=== PATIENT | female | born 1955 | race Caucasian/White ===

== ENCOUNTER 2018-12-30 14:39 | Inpatient (IN) | payer OTHER ==
[~2018-12-30] VITALS: Ht 157.5 cm; Wt 61.8 kg
[2018-12-30 17:57] VITALS: Ht 157.5 cm; Wt 61.8 kg
[2018-12-30 18:00] VITALS: BP 159/64; PULSE 65; RESP 18
[2018-12-30] MEDS ORDERED: ZOLPIDEM 5 MG TAB PO PRN (19:00)
[2018-12-30] MEDS ORDERED: ONDANSETRON 4 MG INJ IV PRN (19:00)
[2018-12-30] MEDS ORDERED: ACETAMINOPHEN 325 MG TAB PO PRN (19:00)
[2018-12-30] MEDS ORDERED: morphine 2 MG INJ IV PRN (19:00)
[2018-12-30] MEDS ORDERED: DOCUSATE SODIUM 100 MG CAP PO PRN (19:00)
[2018-12-30] MEDS ORDERED: NACL 0.9% 3 ML SYG IV SCH (19:00)
[2018-12-30 19:35] VITALS: BP 151/73; PULSE 80; RESP 20
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
[2018-12-31 01:48] VITALS: BP 144/77; PULSE 84; RESP 20
[2018-12-31] MEDS: CEFTRIAXONE 1 GM/50 ML (PMX) 50 ML IVPB SCH (01:54)
[2018-12-31 07:10] VITALS: BP 137/65; PULSE 82; RESP 16
[2018-12-31] MEDS: ENOXAPARIN 40 MG/0.4 ML SYG SC SCH (08:27)
--- NOTE | 2018-12-31 12:49 | PN ---
Date/Time of Note Date/Time of Note DATE: 12/31/18 TIME: 12:48 Assessment/Plan VTE Prophylaxis Risk score (from Nsg)>0 risk: 4 SCD applied (from Nsg): Yes Pharmacological prophylaxis: LMWH Lines/Catheters IV Catheter Type (from Nrs): Saline Lock Assessment/Plan Hospital Course SUBJECTIVE: Lying in bed comfortably. No acute distress. OBJECTIVE: Vital signs-see below PHYSICAL EXAM: Constitutional: 63-year-old female, not in acute distress. Psych: nl mood/affect, no complaints Head: atraumatic, normocephalic Eyes: nl conjunctiva, nl sclera ENMT: mucosa pink and moist, nl external ears & nose Neck: non-tender, supple Respiratory: clear to auscultation, normal air movement Cardiovascular: nl pulses, regular rate and rhythm Gastrointestinal: non-tender, soft, bowel sounds active in all 4 quadrants. Musculoskeletal/extremities: Generalized weakness to all 4 extremities. no fo flori deficit. Normal pulses,no cyanosis, no edema. 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: Alert oriented 3,nl speech, nl strength Skin: nl turgor ASSESSMENT/PLAN: 63-year-old homeless female with a history of chronic back p ain/progressive weakness, here with worsening weakness with inability to walk. 1. Progressive debility -Case management to review chart and refer patient for appropriate placement. -Formal PT eval 2. 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 She should receive a formal physical therapy evaluation to determine her functional ability and appropriate disposition, most likely needing ECF. Patient was seen in collaboration with . Result Diagram: 12/31/181 12/31/18 0421 Results 24hrs Laboratory Tests Test 12/31/18 00:35 12/31/18 04:21 White Blood Count 6.6 6.5 Red Blood Count 4.25 4.32 Hemoglobin 12.6 12.7 Hematocrit 38.6 39.6 Mean Corpuscular Volume 90.8 91.7 Mean Corpuscular Hemoglobin 29.6 29.4 Mean Corpuscular Hemoglobin Concent 32.6 32.1 Red Cell Distribution Width 13.0 13.1 Platelet Count 304 299 Mean Platelet Volume 8.8 8.9 Immature Granulocytes % 0.300 0.500 H Neutrophils % 56.3 57.1 Lymphocytes % 30.3 28.1 Monocytes % 11.4 H 12.2 H Eosinophils % 1.4 1.5 Basophils % 0.3 0.6 Nucleated Red Blood Cells % 0.0 0.0 Immature Granulocytes # 0.020 0.030 Neutrophils # 3.7 3.7 Lymphocytes # 2.0 1.8 Monocytes # 0.8 0.8 Eosinophils # 0.1 0.1 Basophils # 0.0 0.0 Nucleated Red Blood Cells # 0.0 0.0 Sodium Level 142 141 Potassium Level 4.0 3.9 Chloride Level 106 108 Carbon Dioxide Level 27 28 Anion Gap 9 5 Blood Urea Nitrogen 17 20 Creatinine 0.76 0.71 Est Glomerular Filtrat Rate mL/min > 60 > 60 Glucose Level 121 104 Calcium Level 9.9 10.1 Total Bilirubin 0.1 L 0.1 L Direct Bilirubin 0.00 0.00 Indirect Bilirubin 0.1 0.1 Aspartate Amino Transf (AST/SGOT) 18 25 Alanine Aminotransferase (ALT/SGPT) 18 15 Alkaline Phosphatase 70 72 Total Protein 6.4 6.0 L Albumin 3.8 3.6 Globulin 2.60 2.40 Albumin/Globulin Ratio 1.46 1.50 Hemoglobin A1c 5.6 Phosphorus Level 4.6 Magnesium Level 2.2 Exam/Review of Systems Exam Vitals Vital Signs Date Temp Pulse Resp B/P (MAP) Pulse Ox O2 O2 Flow FiO2 Time Delivery Rate 12/31/18 98.3 82 16 137/65 92 Room Air 07:10 (89) Intake and Output 12/30/18 12/30/18 12/31/18 1414:59 22:59 06:59 IntakeIntake Total 700 ml BalanceBalance 700 ml Results Results 24hrs Laboratory Tests Test 12/31/18 00:35 12/31/18 04:21 White Blood Count 6.6 6.5 Red Blood Count 4.25 4.32 Hemoglobin 12.6 12.7 Hematocrit 38.6 39.6 Mean Corpuscular Volume 90.8 91.7 Mean Corpuscular Hemoglobin 29.6 29.4 Mean Corpuscular Hemoglobin Concent 32.6 32.1 Red Cell Distribution Width 13.0 13.1 Platelet Count 304 299 Mean Platelet Volume 8.8 8.9 Immature Granulocytes % 0.300 0.500 H Neutrophils % 56.3 57.1 Lymphocytes % 30.3 28.1 Monocytes % 11.4 H 12.2 H Eosinophils % 1.4 1.5 Basophils % 0.3 0.6 Nucleated Red Blood Cells % 0.0 0.0 Immature Granulocytes # 0.020 0.030 Neutrophils # 3.7 3.7 Lymphocytes # 2.0 1.8 Monocytes # 0.8 0.8 Eosinophils # 0.1 0.1 Basophils # 0.0 0.0 Nucleated Red Blood Cells # 0.0 0.0 Sodium Level 142 141 Potassium Level 4.0 3.9 Chloride Level 106 108 Carbon Dioxide Level 27 28 Anion Gap 9 5 Blood Urea Nitrogen 17 20 Creatinine 0.76 0.71 Est Glomerular Filtrat Rate mL/min > 60 > 60 Glucose Level 121 104 Calcium Level 9.9 10.1 Total Bilirubin 0.1 L 0.1 L Direct Bilirubin 0.00 0.00 Indirect Bilirubin 0.1 0.1 Aspartate Amino Transf (AST/SGOT) 18 25 Alanine Aminotransferase (ALT/SGPT) 18 15 Alkaline Phosphatase 70 72 Total Protein 6.4 6.0 L Albumin 3.8 3.6 Globulin 2.60 2.40 Albumin/Globulin Ratio 1.46 1.50 Hemoglobin A1c 5.6 Phosphorus Level 4.6 Magnesium Level 2.2 Medications Medication Current Medications IV Flush (NS 3 ml) 3 ml PER PROTOCOL IV ; Start 12/30/18 at 19:00 Ondansetron HCl (Zofran Inj) 4 mg Q6H PRN IV NAUSEA/VOMITING; Start 12/30/18 at 19:00 Acetaminophen (Tylenol Tab) 650 mg Q6H PRN PO .PAIN 1-3 OR TEMP; Start 12/30/18 at 19:00 Acetaminophen/ Hydrocodone Bitart ([place] (5/325)) 1 tab Q6H PRN PO .MOD PAIN 4- 6; Start 12/30/18 at 19:00 Morphine Sulfate (morphine) 2 mg Q4H PRN IV .SEVERE PAIN 7-10; Start 12/30/18 at 19:00 Docusate Sodium (Colace) 100 mg Q12H PRN PO .CONSTIPATION; Start 12/30/18 at 19:00 Zolpidem Tartrate (Ambien) 5 mg QHS PRN PO .INSOMNIA; Start 12/30/18 at 19:00 Enoxaparin Sodium (Lovenox) 40 mg DAILY SC Last administered on 12/31/18at 08:27; Admin Dose 40 MG; Start 12/31/18 at 09:00 Ceftriaxone Sodium 50 ml @ 100 mls/hr Q24H IVPB Last administered on 12/31/18at 01:54; Admin Dose 100 MLS/HR; Start 12/31/18 at 01:00; Stop 01/02/19 at 01:29 PRABHJOT NAVA NP Dec 31, 2018 12:49
[2018-12-31 20:00] VITALS: BP 154/71; PULSE 77; RESP 19
[2019-01-01] MEDS: CEFTRIAXONE 1 GM/50 ML (PMX) 50 ML IVPB SCH (01:38)
[2019-01-01 02:00] VITALS: BP 125/60; PULSE 68; RESP 18
[2019-01-01] MEDS: HYDROCODONE/APAP (5/325) TAB PO PRN (06:37)
[2019-01-01 08:00] VITALS: BP 129/65; PULSE 69; RESP 18
[2019-01-01] MEDS: ENOXAPARIN 40 MG/0.4 ML SYG SC SCH (08:42)
--- NOTE | 2019-01-01 11:43 | PN ---
Date/Time of Note Date/Time of Note DATE: 01/01/19 TIME: 11:41 Assessment/Plan VTE Prophylaxis Risk score (from Ns)>0 risk: 4 SCD applied (from Ns): No SCD contraindicated: patient refusal Pharmacological prophylaxis: heparin Lines/Catheters IV [facility] Saline Lock Assessment/Plan Problems: (1) Debility, unspecified Status: Chronic Comment: This is been going on for some time and one wonders if there might be a syrinx in the cervical spine. Since she has had recent MRI scans done I will try and get copies of those reports before unable to the [place] after repeat the films. In the meantime coordinating care especially with her insurance and her primary care physician will be a somewhat tedious task but we will do our best (2) Chronic pain syndrome Status: Chronic Comment: Adequate control at this time. (3) Right foot drop Status: Chronic Comment: Need background data (4) Homeless single person Status: Chronic Comment: central services tech and case management to assist Result Diagram: 12/31/18 04212/31/18420 Subjective 24 Hr Interval Summary Free Text/Dictation Rather animated young lady who reports that "I want to walk". She has a 10-year history of orthopedic issues and we have a paucity of information. Constitutional: no complaints ENT: no complaints Respiratory: no complaints Cardiovascular: no complaints Gastrointestinal: no complaints Neurologic: other (Left-sided weakness lower extremity worsen upper extremity; right sided foot drop) Exam/Review of Systems Exam Vitals Vital Signs Date Temp Pulse Resp B/P (MAP) Pulse Ox O2 O2 Flow FiO2 Time Delivery Rate 01/01/19 98.2 69 18 129/65 95 Room Air 08:00 (86) Intake and Output 12/31/18 12/31/18 01/01/19 1515:00 23:00 07:00 IntakeIntake Total 720 ml BalanceBalance 720 ml Constitutional: alert, oriented Respiratory: clear to auscultation, normal air movement Cardiovascular: regular rate and rhythm, nl pulses Gastrointestinal: soft, nl liver, spleen, non-tender Medications Medication Current Medications IV Flush (NS 3 ml) 3 ml PER PROTOCOL IV ; Start 12/30/18 at 19:00 Ondansetron HCl (Zofran Inj) 4 mg Q6H PRN IV NAUSEA/VOMITING; Start 12/30/18 at 19:00 Acetaminophen (Tylenol Tab) 650 mg Q6H PRN PO .PAIN 1-3 OR TEMP; Start 12/30/18 at 19:00 Acetaminophen/ Hydrocodone Bitart ([place] (5/325)) 1 tab Q6H PRN PO .MOD PAIN 4- 6 Last administered on 01/01/19at 06:37; Admin Dose 1 TAB; Start 12/30/18 at 19:00 Morphine Sulfate (morphine) 2 mg Q4H PRN IV .SEVERE PAIN 7-10; Start 12/30/18 at 19:00 Docusate Sodium (Colace) 100 mg Q12H PRN PO .CONSTIPATION; Start 12/30/18 at 19:00 Zolpidem Tartrate (Ambien) 5 mg QHS PRN PO .INSOMNIA; Start 12/30/18 at 19:00 Enoxaparin Sodium (Lovenox) 40 mg DAILY SC Last administered on 01/01/19at 08:42; Admin Dose 40 MG; Start 12/31/18 at 09:00 Ceftriaxone Sodium 50 ml @ 100 mls/hr Q24H IVPB Last administered on 01/01/19at 01:38; Admin Dose 100 MLS/HR; Start 12/31/18 at 01:00; Stop 01/02/19 at 01:29 Miscellaneous Information Patients own medicat... BID@ XX ; Start 01/01/19 at 10:00 TRAVON SMART MD Jan 01, 2019 11:43
[2019-01-01 14:00] VITALS: BP 129/53; PULSE 81; RESP 18
[2019-01-01 19:50] VITALS: BP 125/69; PULSE 78; RESP 18
[2019-01-02] MEDS: CEFTRIAXONE 1 GM/50 ML (PMX) 50 ML IVPB SCH (00:40)
[2019-01-02 01:44] VITALS: BP 132/64; PULSE 74; RESP 18
[2019-01-02] MEDS: HYDROCODONE/APAP (5/325) TAB PO PRN (03:23)
[2019-01-02 07:41] VITALS: BP 120/64; PULSE 74; RESP 18
[2019-01-02] MEDS: ENOXAPARIN 40 MG/0.4 ML SYG SC SCH (08:32)
--- NOTE | 2019-01-02 12:08 | PN ---
Date/Time of Note Date/Time of Note DATE: 01/02/19 TIME: 12:01 Assessment/Plan VTE Prophylaxis Risk score (from Ns)>0 risk: 4 [place] [facility] [place] contraindicated: patient refusal Pharmacological prophylaxis: heparin Lines/Catheters IV [facility] Peripheral IV Urinary Cath still in place: No Assessment/Plan Problems: (1) Cervical spinal stenosis Status: Chronic Comment: We have not had luck getting the information from the other hospital and the patient informs me we may have to search under different names. Given this been some time possibly since the last set of scans will just go ahead and repeat these for MRI scan of cervical and lumbar spine. Based on that that will then tell us whether or not we need neurosurgical involvement and possibly neurology involvement. If she does have cervical spine stenosis the brain is causing lower extremity symptoms but this will need to be addressed. (2) Right foot drop Status: Chronic Comment: As above (3) Debility, unspecified Status: Chronic Comment: As above (4) Chronic pain syndrome Status: Chronic Comment: Pain is under control at this time (5) Homeless single person Status: Chronic Comment: Case management and social work to assist. Result Diagram: 12/31/1842012/31/18420 Subjective 24 Hr Interval Summary Free Text/Dictation Patient reports that she had had medical care using a couple of different names i.e. aliases while living in [place]. The hospital records at [facility] are under the name we have here Constitutional: no complaints Respiratory: no complaints Cardiovascular: no complaints Gastrointestinal: no complaints Exam/Review of Systems Exam Vitals Vital Signs Date Temp Pulse Resp B/P (MAP) Pulse Ox O2 O2 Flow FiO2 Time Delivery Rate 01/02/19 98.3 74 18 120/64 94 07:41 (82) 01/01/19 Room Air 08:00 Intake and Output 01/01/19 01/01/19 01/02/19 1515:00 23:00 07:00 IntakeIntake Total 860 ml 200 ml 250 ml BalanceBalance 860 ml 200 ml 250 ml Constitutional: alert, oriented Respiratory: clear to auscultation, normal air movement Cardiovascular: regular rate and rhythm, nl pulses Gastrointestinal: soft, nl liver, spleen, non-tender Medications Medication Current Medications IV Flush (NS 3 ml) 3 ml PER PROTOCOL IV ; Start 12/30/18 at 19:00 Ondansetron HCl (Zofran Inj) 4 mg Q6H PRN IV NAUSEA/VOMITING; Start 12/30/18 at 19:00 Acetaminophen (Tylenol Tab) 650 mg Q6H PRN PO .PAIN 1-3 OR TEMP; Start 12/30/18 at 19:00 Acetaminophen/ Hydrocodone Bitart ([place] (5/325)) 1 tab Q6H PRN PO .MOD PAIN 4- 6 Last administered on 01/02/19at 03:23; Admin Dose 1 TAB; Start 12/30/18 at 19:00 Morphine Sulfate (morphine) 2 mg Q4H PRN IV .SEVERE PAIN 7-10; Start 12/30/18 at 19:00 Docusate Sodium (Colace) 100 mg Q12H PRN PO .CONSTIPATION; Start 12/30/18 at 19:00 Zolpidem Tartrate (Ambien) 5 mg QHS PRN PO .INSOMNIA; Start 12/30/18 at 19:00 Enoxaparin Sodium (Lovenox) 40 mg DAILY SC Last administered on 01/02/19at 08:32; Admin Dose 40 MG; Start 12/31/18 at 09:00 Miscellaneous Information Patients own medicat... BID@ XX ; Start 01/01/19 at 10:00 TRAVON SMART MD Jan 02, 2019 12:08
[2019-01-02 14:30] VITALS: BP 119/62; PULSE 78; RESP 18
[2019-01-02 19:28] VITALS: BP 128/70; PULSE 81; RESP 18; RESP 81
[2019-01-03 01:59] VITALS: BP 119/60; PULSE 77; RESP 18
[2019-01-03] MEDS: HYDROCODONE/APAP (5/325) TAB PO PRN ×2 (07:25→19:59)
[2019-01-03 08:00] VITALS: BP 132/77; PULSE 80; RESP 18
[2019-01-03] MEDS: ENOXAPARIN 40 MG/0.4 ML SYG SC SCH (08:27)
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
--- NOTE | 2019-01-03 13:44 | PN ---
Date/Time of Note Date/Time of Note DATE: 01/03/19 TIME: 13:42 Assessment/Plan VTE Prophylaxis Risk score (from Ns)>0 risk: 4 SCD applied (from Nsg): Yes Pharmacological prophylaxis: heparin Lines/Catheters IV Catheter Type (from Nrsg): Peripheral IV Urinary Cath still in place: No Assessment/Plan Hospital Course 63 yo female with chronic LE weakness, found to have cervical stenosis - Surgical intervention per Dr Hagan - The patient has no active cardiac conditions and is medically optimized for the OR without further workup - Thoracic MRI is pending Result Diagram: 12/31/1842012/31/18420 Results 24hrs Laboratory Tests Test 01/03/19 12:40 Prothrombin Time 11.3 L Prothrombin Time Ratio 0.9 INR International Normalized Ratio 0.81 Activated Partial Thromboplast Time 25.2 Subjective 24 Hr Interval Summary Free Text/Dictation No change to symptoms Chornic weakness MRI shows cervical stenosis and lumbar as well. Dr Hagan planning to operate tomorrow Exam/Review of Systems Exam Vitals Vital Signs Date Temp Pulse Resp B/P (MAP) Pulse Ox O2 O2 Flow FiO2 Time Delivery Rate 01/03/19 97.9 80 18 132/77 93 08:00 (95) 01/01/19 Room Air 08:00 Intake and Output 01/02/19 01/02/19 01/03/19 1515:00 23:00 07:00 IntakeIntake Total 200 ml 400 ml 200 ml BalanceBalance 200 ml 400 ml 200 ml Constitutional: alert, oriented, well developed Psych: no complaints, nl mood/affect Head: normocephalic, atraumatic Eyes: nl conjunctiva, EOMI, nl lids, nl sclera, PERRL ENMT: nl external ears & nose, nl lips & teeth, nl nasal mucosa & septum Neck: supple, non-tender Respiratory: clear to auscultation, normal air movement Cardiovascular: regular rate and rhythm, nl pulses Gastrointestinal: soft, nl liver, spleen, non-tender Musculoskeletal: nl extremities to inspection, nl gait and stance Extremities: normal pulses 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: 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, nl mental status, nl speech, nl strength Skin: nl turgor; No rash or lesions Lymph: nl lymph nodes Results Results 24hrs Laboratory Tests Test 01/03/19 12:40 Prothrombin Time 11.3 L Prothrombin Time Ratio 0.9 INR International Normalized Ratio 0.81 Activated Partial Thromboplast Time 25.2 Medications Medication Current Medications IV Flush (NS 3 ml) 3 ml PER PROTOCOL IV ; Start 12/30/18 at 19:00 Ondansetron HCl (Zofran Inj) 4 mg Q6H PRN IV NAUSEA/VOMITING; Start 12/30/18 at 19:00 Acetaminophen (Tylenol Tab) 650 mg Q6H PRN PO .PAIN 1-3 OR TEMP; Start 12/30/18 at 19:00 Acetaminophen/ Hydrocodone Bitart ([place] (5/325)) 1 tab Q6H PRN PO .MOD PAIN 4- 6 Last administered on 01/03/19at 07:25; Admin Dose 1 TAB; Start 12/30/18 at 19:00 Morphine Sulfate (morphine) 2 mg Q4H PRN IV .SEVERE PAIN 7-10; Start 12/30/18 at 19:00 Docusate Sodium (Colace) 100 mg Q12H PRN PO .CONSTIPATION; Start 12/30/18 at 19:00 Zolpidem Tartrate (Ambien) 5 mg QHS PRN PO .INSOMNIA; Start 12/30/18 at 19:00 Enoxaparin Sodium (Lovenox) 40 mg DAILY SC Last administered on 01/03/19at 08:27; Admin Dose 40 MG; Start 12/31/18 at 09:00 Miscellaneous Information Patients own medicat... BID@ XX ; Start 01/01/19 at 10:00 TRACEY URBAN MD Jan 03, 2019 13:44
[2019-01-03] MEDS ORDERED: SOD CHLORIDE 0.9% 100 ML ONE (16:16)
[2019-01-03] MEDS ORDERED: IOHEXOL 100 ML ONE (16:16)
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
[2019-01-03 19:29] VITALS: BP 134/65; PULSE 89; RESP 18
[2019-01-04 01:01] VITALS: BP 129/64; PULSE 81; RESP 18
[2019-01-04 07:34] VITALS: BP 120/67; PULSE 71; RESP 16
[2019-01-04] MEDS: ENOXAPARIN 40 MG/0.4 ML SYG SC SCH (09:00)
--- NOTE | 2019-01-04 11:25 | PN ---
Date/Time of Note Date/Time of Note DATE: 01/04/19 TIME: 11:20 Assessment/Plan VTE Prophylaxis Risk score (from Ns)>0 risk: 4 SCD applied (from Ns): No SCD contraindicated: patient refusal Pharmacological prophylaxis: NA/contraindicated Pharm contraindication: surgical contra Lines/Catheters [facility] Peripheral IV Urinary Cath still in place: No Assessment/Plan Hospital Course SUBJECTIVE: Lying in bed comfortably. No acute distress. OBJECTIVE: Vital signs-see below PHYSICAL EXAM: Constitutional: 63-year-old female, not in acute distress. Psych: nl mood/affect, no complaints Head: atraumatic, normocephalic Eyes: nl conjunctiva, nl sclera ENMT: mucosa pink and moist, nl external ears & nose Neck: non-tender, supple Respiratory: clear to auscultation, normal air movement Cardiovascular: nl pulses, regular rate and rhythm Gastrointestinal: non-tender, soft, bowel sounds active in all 4 quadrants. Musculoskeletal/extremities: Generalized weakness to all 4 extremities. no focal deficit. Normal pulses,no cyanosis, no edema. 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: Alert oriented 3,nl speech, nl strength Skin: nl turgor ASSESSMENT/PLAN: 63-year-old homeless female with a history of chronic back pain/progressive weakness, here with worsening weakness with inability to walk, found to have severe cervical spinal stenosis. 1. Cervical spinal stenosis with radiculopathy -For neurosurgical intervention with Dr. Rodriguez today -Postoperative weight bearing and anticoagulation per neurosurgery. -Pain control -DC Lovenox and postoperative anticoagulation per neurosurgery if indicated 2. 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 Follow-up postoperative recommendations. Patient was seen in collaboration with Result Diagram: 12/31/18 04212/31/18 0421 Results 24hrs Laboratory Tests Test 01/03/19 12:40 Prothrombin Time 11.3 L Prothrombin Time Ratio 0.9 INR International Normalized Ratio 0.81 Activated Partial Thromboplast Time 25.2 Exam/Review of Systems Exam Vitals Vital Signs Date Temp Pulse Resp B/P (MAP) Pulse Ox O2 O2 Flow FiO2 Time Delivery Rate 01/04/19 98.0 71 16 120/67 94 Room Air 07:34 (84) Intake and Output 01/03/19 01/03/19 01/04/19 1515:00 23:00 07:00 IntakeIntake Total 920 ml 440 ml 600 ml BalanceBalance 920 ml 440 ml 600 ml Results Results 24hrs Laboratory Tests Test 01/03/19 12:40 Prothrombin Time 11.3 L Prothrombin Time Ratio 0.9 INR International Normalized Ratio 0.81 Activated Partial Thromboplast Time 25.2 Medications Medication Current Medications IV Flush (NS 3 ml) 3 ml PER PROTOCOL IV ; Start 12/30/18 at 19:00 Ondansetron HCl (Zofran Inj) 4 mg Q6H PRN IV NAUSEA/VOMITING; Start 12/30/18 at 19:00 Acetaminophen (Tylenol Tab) 650 mg Q6H PRN PO .PAIN 1-3 OR TEMP; Start 12/30/18 at 19:00 Acetaminophen/ Hydrocodone Bitart ([place] (5/325)) 1 tab Q6H PRN PO .MOD PAIN 4- 6 Last administered on 01/03/19at 19:59; Admin Dose 1 TAB; Start 12/30/18 at 19:00 Morphine Sulfate (morphine) 2 mg Q4H PRN IV .SEVERE PAIN 7-10; Start 12/30/18 at 19:00 Docusate Sodium (Colace) 100 mg Q12H PRN PO .CONSTIPATION; Start 12/30/18 at 19:00 Zolpidem Tartrate (Ambien) 5 mg QHS PRN PO .INSOMNIA; Start 12/30/18 at 19:00 Enoxaparin Sodium (Lovenox) 40 mg DAILY SC Last administered on 01/03/19at 08:27; Admin Dose 40 MG; Start 12/31/18 at 09:00 Miscellaneous Information Patients own medicat... BID@ XX ; Start 01/01/19 at 10:00 PRABHJOT NAVA NP Jan 04, 2019 11:25
--- NOTE | 2019-01-04 13:25 | CONS ---
Assessment/Plan Assessment/Plan Assessment/Plan (Daily) Date of progress note: 01/04/2019 The patient has subsequently received a CT angiogram of her cervical spine as well as MRI of the thoracic spine without contrast at my request for evaluation of her cervical vasculature and the bony anatomy and for further workup of her quadriparesis especially her left lower extremity proximal and distal weakness. The MRI of the thoracic spine shows a possible mild T10 superior endplate fracture that appears to be of chronic nature without any significant height loss. There is no evidence of canal stenosis or cord compression or enlargement of the spinal cord. There are several areas of focal T2 hyperintensity of the center of the spinal cord including the T6 and T9 areas that are also noted in the radiology report and possibly related to "demyelination" without cord expansion. The CT angiogram of the neck showed significant anterior osteophytes throughout the cervical spine and some irregularities of the course of the vertebral arteries especially on the right that appears to be somewhat tortuous and possibly related to degenerative changes. There is also noted focal stenosis of the left vertebral artery at the C1-C2 level seems to be related to osteophytes externally stenosing the vertebral artery. There is also asymmetric left C1-C2 facet junction that appears to be related to advanced degenerative changes. There is severe multilevel disc height loss and [id number] d eformities at multiple levels including C3-C6 and C3 on C4 anterolisthesis. The patient's exam remains unchanged with quadriparesis worse on the left including significant left proximal and distal lower extremity weakness with a left foot drop. The patient was tentatively scheduled for multilevel anterior cervical discectomy, decompression instrument fusion and possible corpectomy for this afternoon. However, earlier today, I was notified by the patient's nurse from today that the patient does not wish to sign any consent forms as she says that "no doctor explained her condition or the surgery to her." The patient says this while I spent more than 45 minutes yesterday waiting for the patient to come back from her shower, then examined her, explained her condition and further treatment plans including possible surgery to her while the nurses aide was just outside the patient's room with the door open. The patient indicated very enthusiastically that she wanted to proceed with surgery even though I explained to her that we still needed to perform further imaging studies including the CT Angio neck and MRI of thoracic spine prior to any possible surgery. Then, a bit later this morning I was told that the patient has now again changed her mind, "she was agitated earlier today" and now wishes to again proceed with surgery. Unfortunately, when it comes to any surgery especially a major operation such as neurosurgical procedures including brain surgery and spine surgery with definite and real chances of risks and adverse outcomes (although small), the patient's ability to understand the discussions, retain the information and to have a meaningful informed consent is essential. The fact that the patient has changed her mind multiple times regarding surgical intervention in a very short period of time is very concerning for her having the right state of mind for any surgical intervention at this time. Unfortunately, the patient also tells me that she has no family members who can help or be involved in the decision- making. Since, the above surgery is an elective operation and the patient has had signs and symptoms of quadriparesis including the left foot drop for several years that have progressed over time, I do not recommend with proceeding with elective surgery during this hospital stay. The patient can receive aggressive physical therapy in the time being. The patient can follow-up with me in clinic in the next 2-3 weeks to have further discussions about a possible surgical intervention. I have had a very detailed discussion with the patient's hospitalist, Dr. House as well who agrees with the above plan. The patient is also welcome to have another neurosurgical or orthospine opinion as the patient seems to have had multiple evaluations and opinions in the past as she told me previously. The patient's nurse has also been notified of the plan. CHRISTINA MONTERO MD Jan 04, 2019 13:25
[2019-01-04 13:43] VITALS: BP 132/69; PULSE 76; RESP 18
--- NOTE | 2019-01-04 16:57 | CONS ---
Assessment/Plan Assessment/Plan Hospital Course 63 yo F with multiple comorbidities who presents for evaluation of progressive 4-limb weakness (L>R) and urinary incontinenc x 1 month... for which neurology is consulted. MRIs of the spine are most notable for severe and multilevel cervical canal stenosis, among other stenoses... which is certainly the underlying cause of her symptoms. P: Surgical management per neurosurgery PT/OT as tolerated Other medical management per primary Will follow clinically, to recommend additional neurologic studies, as necessary Consultation Date/Type/Reason Admit Date/Time Dec 30, 2018 at 17:40 Type of Consult Neurology Reason for Consultation progressive weakness Requesting Provider: TRACEY URBAN MD Date/Time of Note DATE: 01/04/19 TIME: 16:57 24 HR Interval Summary Free Text/Dictation Continues medsurg monitoring. Seen by neurosurgery. Surgery reportedly cancelled today d/t pt's sudden noncompliance with POC. Pt states that she regrets her decisions/actions earlier and is asking to reschedule surgery.. Exam Vital Signs Vitals Vital Signs Date Temp Pulse Resp B/P (MAP) Pulse Ox O2 O2 Flow FiO2 Time Delivery Rate 01/04/19 97.8 76 18 132/69 96 Room Air 13:43 (90) Intake and Output 01/03/19 01/03/19 01/04/19 1414:59 22:59 06:59 IntakeIntake Total 920 ml 440 ml 600 ml BalanceBalance 920 ml 440 ml 600 ml Exam PE: Gen Appearance: No Apparent Distress HEENT: Normocephalic Cardiovascular: Regular rate Lungs: Clear bilaterally Abdomen: Soft Extremities: Dry NE: The patient was alert and fully oriented. Language was normal. Fund of knowledge was normal. Pupils were equal and reactive to light. There was no afferent pupillary defect. Visual anderson were normal. Funduscopic examination was limited. Extra-ocular movements were full. Ptosis was absent. There was no nystagmus. Facial sensation was normal. Face was symmetric with normal strength. Hearing was intact. Palate movements were normal. Neck strength was normal. There was normal tongue bulk and speed of movement. Tone was increased in the LUE. Muscle bulk was diminished in the LLE. I did not see fasciculations. Arms were moderately weak on the LUE, both with flexion and extension; was mildly weak to confrontation on the RUE; L hip flexor/leg was severely weak vs the R. Plantar flexion/dorsiflexion was absent in the L foot, intact in the R. Vibration sensation was diminished in the BLE. Temperature and pinprick sensation was normal. Rapid alternating movements were slow, thoughtful... more so on the L than R. There was no dysmetria. There was no intention tremor. Gait was deferred due to bedrest. Arm reflexes were asymmetric in the UE, and brisk in the LE. Villalobos's sign was absent. Plantar responses were flexor. ANDREAS BARRETO NP Jan 04, 2019 16:57
[2019-01-04] MEDS ORDERED: morphine LIQ (10 MG/5 ML) CUP PO PRN (18:00)
[2019-01-04 20:21] VITALS: BP 124/70; PULSE 71; RESP 19
[2019-01-05 01:48] VITALS: BP 128/78; PULSE 82; RESP 17
[2019-01-05 07:17] VITALS: BP 132/64; PULSE 74; RESP 16
[2019-01-05] MEDS: ENOXAPARIN 40 MG/0.4 ML SYG SC SCH (08:47)
--- NOTE | 2019-01-05 12:10 | PDOCDIS ---
Discharge Instructions CONDITION [id number] Patient Condition: [id number] Stable HOME CARE INSTRUCTIONS: [id number] Diet Instructions: Noufe2g Regular FOLLOW UP/APPOINTMENTS Follow-up Plan Follow-up with Dr. Rodriguez in his clinic in 2 weeks. [id number] [facility] [address] [place] [address] Office Follow-up with primary care physician in 1 week PRABHJOT NAVA NP Jan 05, 2019 12:10
[2019-01-05] MEDS ORDERED: IBUP-1544 PO (12:13)
[2019-01-05] MEDS ORDERED: TRAM50TA PO (12:13)
--- NOTE | 2019-01-05 12:20 | PN ---
Date/Time of Note Date/Time of Note DATE: 01/05/19 TIME: 12:16 Assessment/Plan VTE Prophylaxis Risk score (from Nsg)>0 risk: 4 SCD applied (from Nsg): Yes Pharmacological prophylaxis: LMWH Lines/Catheters IV Catheter Type (from Nrsg): Saline Lock Urinary Cath still in place: No Assessment/Plan Hospital Course SUBJECTIVE:. Patient with improved pain status.Patient reported that "Nurse told me because I refuse surgery the first time, will not rethink his decision anymore which is not right. OBJECTIVE: Vital signs-see below PHYSICAL EXAM: Constitutional: 63-year-old female, not in acute distress. Psych: nl mood/affect, no complaints Head: atraumatic, normocephalic Eyes: nl conjunctiva, nl sclera ENMT: mucosa pink and moist, nl external ears & nose Neck: non-tender, supple Respiratory: clear to auscultation, normal air movement Cardiovascular: nl pulses, regular rate and rhythm Gastrointestinal: non-tender, soft, bowel sounds active in all 4 quadrants. Musculoskeletal/extremities: Generalized weakness to all 4 extremities. no focal deficit. Normal pulses,no cyanosis, no edema. 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: Alert oriented 3,nl speech, nl strength Skin: nl turgor ASSESSMENT/PLAN: 63-year-old homeless female with a history of chronic back pain/progressive weakness, here with worsening weakness with inability to walk, found to have severe cervical spinal stenosis. 1. Multi level Cervical spinal stenosis -Appreciate neurosurgical evaluation, surgical approach was proposed initially,however patient kept changing her mind frequently leading to c ancellation of procedure few times. As per NS, this is an elective surgery and in the fact that patient seems having liable mood with no certainty of whether she is agreeable for surgery, having no family support, chronicity of her symptoms, she would need a reevaluation after short course of PT. Today she also asked me"can I stay at ' clinic until he see me in 2 week?" At this time I am also concerned about her mental/cognition status. We will also request a formal psych eval to determine if she is mentally capable of making such complex decision.This plan is clearly communicated with LISA Richmond -Continue physical therapy as ordered -Pain control -Add NSAIDs 2. 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 DVT prophylaxis: Lovenox PUD prophylaxis: Not indicated Disposition: At this time, NS recommended PT/rehab/pain control and a f/u at 's office in 2 weeks for elective neurosurgery. Patient in agreeable with this plan. She is receptive for a prison as she is homeless. Her functional status is wheelchair bound. Unfortunately no SNF accepting her / homelessness. SW/CM recommended prison as she has been wheelchair bound for a long time. We will help her with a PT for the least. Patient also seems not completely competent in making complex decision including neurosurgery, as such, she would benefit from a formal psych eval to determine her capacity level prior to discharge. Patient was seen in collaboration with Result Diagram: 01/05/1945001/05/19450 Results 24hrs Laboratory Tests Test 01/05/19 04:51 White Blood Count 9.1 # Red Blood Count 4.24 Hemoglobin 12.6 Hematocrit 38.9 Mean Corpuscular Volume 91.7 Mean Corpuscular Hemoglobin 29.7 Mean Corpuscular Hemoglobin Concent 32.4 Red Cell Distribution Width 13.1 Platelet Count 302 Mean Platelet Volume 9.1 Immature Granulocytes % 0.300 Neutrophils % 70.1 Lymphocytes % 17.9 Monocytes % 9.9 Eosinophils % 1.4 Basophils % 0.4 Nucleated Red Blood Cells % 0.0 Immature Granulocytes # 0.030 Neutrophils # 6.4 Lymphocytes # 1.6 Monocytes # 0.9 Eosinophils # 0.1 Basophils # 0.0 Nucleated Red Blood Cells # 0.0 Sodium Level 139 Potassium Level 4.2 Chloride Level 107 Carbon Dioxide Level 27 Anion Gap 5 Blood Urea Nitrogen 24 H Creatinine 0.65 Est Glomerular Filtrat Rate mL/min > 60 Glucose Level 91 Calcium Level 9.8 Magnesium Level 2.1 Exam/Review of Systems Exam Vitals Vital Signs Date Temp Pulse Resp B/P (MAP) Pulse Ox O2 O2 Flow FiO2 Time Delivery Rate 01/05/19 98.4 74 16 132/64 94 Room Air 07:17 (86) Intake and Output 01/04/19 01/04/19 01/05/19 1414:59 22:59 06:59 IntakeIntake Total 400 ml 600 ml BalanceBalance 400 ml 600 ml Results Results 24hrs Laboratory Tests Test 01/05/19 04:51 White Blood Count 9.1 # Red Blood Count 4.24 Hemoglobin 12.6 Hematocrit 38.9 Mean Corpuscular Volume 91.7 Mean Corpuscular Hemoglobin 29.7 Mean Corpuscular Hemoglobin Concent 32.4 Red Cell Distribution Width 13.1 Platelet Count 302 Mean Platelet Volume 9.1 Immature Granulocytes % 0.300 Neutrophils % 70.1 Lymphocytes % 17.9 Monocytes % 9.9 Eosinophils % 1.4 Basophils % 0.4 Nucleated Red Blood Cells % 0.0 Immature Granulocytes # 0.030 Neutrophils # 6.4 Lymphocytes # 1.6 Monocytes # 0.9 Eosinophils # 0.1 Basophils # 0.0 Nucleated Red Blood Cells # 0.0 Sodium Level 139 Potassium Level 4.2 Chloride Level 107 Carbon Dioxide Level 27 Anion Gap 5 Blood Urea Nitrogen 24 H Creatinine 0.65 Est Glomerular Filtrat Rate mL/min > 60 Glucose Level 91 Calcium Level 9.8 Magnesium Level 2.1 Medications Medication Current Medications IV Flush (NS 3 ml) 3 ml PER PROTOCOL IV ; Start 12/30/18 at 19:00 Ondansetron HCl (Zofran Inj) 4 mg Q6H PRN IV NAUSEA/VOMITING; Start 12/30/18 at 19:00 Acetaminophen (Tylenol Tab) 650 mg Q6H PRN PO .PAIN 1-3 OR TEMP; Start 12/30/18 at 19:00 Acetaminophen/ Hydrocodone Bitart ([place] (5/325)) 1 tab Q6H PRN PO .MOD PAIN 4- 6 Last administered on 01/03/19at 19:59; Admin Dose 1 TAB; Start 12/30/18 at 19:00 Docusate Sodium (Colace) 100 mg Q12H PRN PO .CONSTIPATION; Start 12/30/18 at 19:00 Zolpidem Tartrate (Ambien) 5 mg QHS PRN PO .INSOMNIA; Start 12/30/18 at 19:00 Miscellaneous Information Patients own medicat... BID@, XX ; Start 01/01/19 at 10:00 Enoxaparin Sodium (Lovenox) 40 mg DAILY SC Last administered on 01/05/19at 08:47; Admin Dose 40 MG; Start 01/05/19 at 09:00 Morphine Sulfate (morphine) 6 mg Q4H PRN PO SEVERE PAIN LEVEL 7-10; Start 01/04/19 at 18:00 PRABHJOT NAVA NP Jan 05, 2019 12:20
--- NOTE | 2019-01-05 12:32 | DS ---
Date/Time of Note Date/Time of Note DATE: 01/05/19 TIME: 12:21 Discharge Summary Admission/Discharge Info Admit Date/Time Dec 30, 2018 at 17:40 Discharge Date/Time Discharge Diagnosis 1. Multilevel cervical spinal stenosis. 2. Homelessness Patient Condition: Stable Consults Dr. Rodriguez, neurosurgery Procedures 01/03/2019. CTA neck. IMPRESSION: 1. Greater than 70% percent stenosis distal cervical left vertebral artery at the C1-2 level due to chronic bony perforation as described above. 2. Patent left and right vertebral arteries, codominant. 3. Aortic arch and great vessel origins not included on the study. 01/03/2019. MRI thoracic spine without contrast. IMPRESSION: 1. Old superior T10 endplate fracture without loss of vertebral body height. 2. Small possible foci of core demyelination on the right at T6 and T9 and in the posterior lateral left superior T9. 3. No canal stenosis or cord encroachment. 4. Mild multilevel mid and upper thoracic spondylosis.. 01/03/2019. MRI of the cervical spine with and without contrast IMPRESSION: Multiple sequences are degraded by motion. 1. Prominent degenerative changes at the craniocervical junction, with mild basilar invagination, severe left C1-C2 lateral mass articulation degenerative change with osseous hypertrophy and prominent height loss of the lateral masses and prominence of the venous plexus in this region. More focal 5 mm enhancing nodule with mild mass effect on the left thecal sac at this level is likely an engorged venous plexus. CT may be obtained for better evaluation of the osseous structures of the craniocervical junction. 2. Mild intermediate signal in the left afshan cord at this level, not well evaluated due to motion, may represent focal myelomalacia and without post contrast enhancement. 3. Reversal of cervical lordosis at C4, and left convex curvature of the cervical spine with significant multilevel degenerative disc and facet disease, with grade 1 anterolisthesis at C3-C4 and retrolisthesis at C4-C6 as above. 4. Multilevel disc osteophyte complexes resulting in multilevel spinal canal stenosis as detailed above level by level, severe at C4-C5 and C5-C6. 5. Multilevel facet arthropathy and uncovertebral joint spurring resulting in significant multilevel neural foraminal narrowing as detailed above level by level. 6. Prominent degenerative right C5-C6 facet and linh facet edema. 7. Faint loss of flow void in the left vertebral artery on postcontrast images, which can be further assessed with dedicated CTA or MRA. RPTAT: PP Physician Selene Date Time Electronically viewed and signed by Atif Carey Physician on 01/03/2019 08:08 01/02/2019. MRI of the lumbar spine with and without contrast IMPRESSION: 1. Levoscoliosis of the lumbar spine with multilevel degenerative disc and facet disease, with grade 1 anterolisthesis at L4-S1 and mild retrolisthesis at L2-L3. 2. Severe facet arthropathy at L5-S1 with right facet joint effusion and degenerative linh facet edema/inflammation, as well as broad-based disc bulge and left central disc extrusion as detailed above, with prominent narrowing of the subarticular recesses and likely contact of the traversing S1 nerve roots. Moderate to severe bilateral neural foraminal narrowing and mild spinal canal stenosis. 3. Severe facet arthropathy, right facet joint effusion and linh facet edema/inflammation at L4-L5 as well as broad-based disc bulge with moderate to severe right and moderate left neural foraminal narrowing, moderate to severe spinal canal stenosis and severe subarticular recess narrowing. Interspinous edema / cystic change and bursitis at this level. 4. Moderate spinal canal stenosis, moderate right and moderate to severe left neural foraminal narrowing at L3-L4. 5. Additional levels as above. Hospital Course 63-year-old homeless female with a history of chronic back pain/progressive weakness, here with worsening weakness with inability to walk, found to have severe multilevel cervical spinal stenosis. Pain was managed with adequate analgesia. Patient had neurosurgery evaluation and surgical approach was proposed initially,however patient kept changing her mind frequently leading to cancellation of procedure few times. As per NS, this is an elective surgery and in the fact that patient seems having liable mood with no certainty of whether she is agreeable for surgery, having no family support, chronicity of her symptoms, she would need a reevaluation after short course of PT. Patient in agreement with this plan. She is also homeless for which she would need a jail placement . Case management and social media community manager to arrange this. Patient would also need a formal psych eval to determine whether she has capacity for making complex decisions including neurosurgery. After this, she should be stable to go with some jail assistance and follow-up with Dr. Rodriguez in his clinic. Approximately 60 m spent on coordinating the discharge on this patient. Patient was seen in collaboration with Home Meds Active Scripts Tramadol Hcl* (Ultram*) 50 Mg Tablet, 50 MG PO Q8 for SEVER PAIN, #20 TAB Prov:PRABHJOT NAVA V. TOPOGRAPHICAL DRAFTER 01/05/19 Ibuprofen* (Ibuprofen*) 800 Mg Tablet, 800 MG PO Q6H PRN for PAIN, #30 TAB Prov:PRABHJOT NAVA V. TOPOGRAPHICAL DRAFTER 01/05/19 Follow-up Plan Follow-up with Dr. Rodriguez in his clinic in 2 weeks. [address] [facility] [address] [place], [place] [id number] Office Follow-up with primary care physician in 1 week Primary Care Provider Not On Staff Doctor Pending Labs Laboratory Tests Test 01/05/19 04:51 White Blood Count 9.1 10^3/ul (4.8-10.8) Red Blood Count 4.24 10^6/ul (4.20-5.40) Hemoglobin 12.6 g/dl (12.0-16.0) Hematocrit 38.9 % (37.0-47.0) Mean Corpuscular Volume 91.7 fl (82.0-101.0) Mean Corpuscular Hemoglobin 29.7 pg (29.0-33.0) Mean Corpuscular Hemoglobin Concent 32.4 g/dl (32.0-37.0) Red Cell Distribution Width 13.1 % (11.5-14.5) Platelet Count 302 10^3/UL (140-415) Mean Platelet Volume 9.1 fl (7.4-10.4) Immature Granulocytes % 0.300 % (0.001-0.429) Neutrophils % 70.1 % (39.0-77.0) Lymphocytes % 17.9 % (15.0-51.0) Monocytes % 9.9 % (0.0-11.0) Eosinophils % 1.4 % (0.0-7.0) Basophils % 0.4 % (0.0-2.0) Nucleated Red Blood Cells % 0.0 /100WBC (0.0-0.0) Immature Granulocytes # 0.030 10^3/ul (0.0-0.031) Neutrophils # 6.4 10^3/ul (1.6-7.5) Lymphocytes # 1.6 10^3/ul (0.8-2.9) Monocytes # 0.9 10^3/ul (0.3-0.9) Eosinophils # 0.1 10^3/ul (0.0-0.5) Basophils # 0.0 10^3/ul (0.0-0.1) Nucleated Red Blood Cells # 0.0 10^3/ul (0.0-0.0) Sodium Level 139 mmol/L (135-144) Potassium Level 4.2 mmol/L (3.5-5.1) Chloride Level 107 mmol/L (97-110) Carbon Dioxide Level 27 mmol/L (21-31) Anion Gap 5 (5-13) Blood Urea Nitrogen 24 mg/dl (7-20) Creatinine 0.65 mg/dl (0.44-1.00) Est Glomerular Filtrat Rate mL/min > 60 mL/min (>60) Glucose Level 91 mg/dl (70-220) Calcium Level 9.8 mg/dl (8.4-10.2) Magnesium Level 2.1 mg/dl (1.7-2.5) PRABHJOT NAVA NP Jan 05, 2019 12:32
[2019-01-05 14:18] VITALS: BP 141/74; PULSE 79; RESP 16
--- NOTE | 2019-01-05 15:27 | CONS ---
Assessment/Plan Assessment/Plan Hospital Course 63 yo F with multiple comorbidities who presents for evaluation of progressive 4-limb weakness (L>R) and urinary incontinenc x 1 month... for which neurology is consulted. MRIs of the spine are most notable for severe and multilevel cervical canal stenosis, among other stenoses... which is certainly the underlying cause of her symptoms. P: Surgical management per neurosurgery PT/OT as tolerated Other medical management per primary Will follow clinically Consultation Date/Type/Reason Admit Date/Time Dec 30, 2018 at 17:40 Type of Consult Neurology Reason for Consultation weakness Requesting Provider: TRACEY URBAN MD Date/Time of Note DATE: 01/05/19 TIME: 15:16 24 HR Interval Summary Free Text/Dictation Continues acute care Exam Vital Signs Vitals Vital Signs Date Temp Pulse Resp B/P (MAP) Pulse Ox O2 O2 Flow FiO2 Time Delivery Rate 01/05/19 97.7 79 16 141/74 96 Room Air 14:18 (96) Intake and Output 01/04/19 01/04/19 01/05/19 1515:00 23:00 07:00 IntakeIntake Total 400 ml 600 ml BalanceBalance 400 ml 600 ml Exam PE: Gen Appearance: No Apparent Distress HEENT: Normocephalic Cardiovascular: Regular rate Abdomen: Soft Extremities: Dry NE: The patient was alert and oriented. Language was normal. Fund of knowledge was adequate. Pupils were equal and reactive to light. There was no afferent pupillary defect. Visual anderson were normal. Funduscopic examination was limited. Extra-ocular movements were full. Ptosis was absent. There was no nystagmus. Facial sensation was normal. Face was symmetric with normal strength. Hearing was intact. Palate movements were normal. Neck strength was normal. There was normal tongue bulk and speed of movement. Tone was normal. Muscle bulk was normal. I did not see fasciculations. Limbs were weak; L arm and leg were weaker than the R.. Vibration sensation was diminished on the Left. Temperature and pinprick sensation was diminished on the L. Rapid alternating movements were normal. There was no dysmetria. There was no intention tremor. Gait was deferred due to bedrest. Arm and leg reflexes were asymmetric. Plantar responses were equivocal. ROSHAN MCDONALD Jan 05, 2019 15:27
--- NOTE | 2019-01-05 18:32 | PSY ---
Date/Time of Note Date/Time of Note DATE: 01/05/19 TIME: 18:24 Psychiatric Subjective Eval Consent Pt consented to telemedicine: No Subjective Evaluation Patient location: inpatient History of present illness Patient is a 63yr old female with past medical history chronic back pain. On a [id number] evaluation, patient is alert and oriented able to make her needs known. She admits history of depression as a teenager but states she has never taken any medication. She admits going through counseling as a teenager, she denies. feeling of hopelessness, denies feeling of helplessness, she denies auditory hallucination, denies suicidal ideation and contracted for safety. Patient states she gets sad over her living situation because she used to walk in the wrist [place] but lost her mobile home after an injury but denies clinical depression. Patient has a capacity to make her own decisions. Past psychiatric history Admits history of mental illness as a teenager Medical history Problems Medical Problems: (1) Cervical spinal stenosis Status: Chronic (2) Chronic pain syndrome Status: Chronic (3) Debility, unspecified Status: Chronic (4) Right foot drop Status: Chronic Allergies: Coded Allergies: No Known Allergy (Unverified , 12/30/18) Substance Abuse Substance abuse history: No Prior substance abuse treatmen: No Social History Marital status: other DPA/Conservatorship: No Psychiatric Objective Eval Physical Examination: Physical Examination: Not Applicable Sleep: Adequate Appetite: Adequate Energy: Adequate Interest: Adequate Mental Status Examination: Appearance: Groomed Psychomotor Activity: Normal Speech: Clear AFFECT: Appropriate Mood: Appropriate/Full Though Process: Linear Orientation: x4 Insight: Mild Judgement: Mild Attention Span: Distractible Laboratory Results Laboratory Tests Test 01/05/19 04:51 White Blood Count 9.1 10^3/ul Red Blood Count 4.24 10^6/ul Hemoglobin 12.6 g/dl Hematocrit 38.9 % Mean Corpuscular Volume 91.7 fl Mean Corpuscular Hemoglobin 29.7 pg Mean Corpuscular Hemoglobin Concent 32.4 g/dl Red Cell Distribution Width 13.1 % Platelet Count 302 10^3/UL Mean Platelet Volume 9.1 fl Immature Granulocytes % 0.300 % Neutrophils % 70.1 % Lymphocytes % 17.9 % Monocytes % 9.9 % Eosinophils % 1.4 % Basophils % 0.4 % Nucleated Red Blood Cells % 0.0 /100WBC Immature Granulocytes # 0.030 10^3/ul Neutrophils # 6.4 10^3/ul Lymphocytes # 1.6 10^3/ul Monocytes # 0.9 10^3/ul Eosinophils # 0.1 10^3/ul Basophils # 0.0 10^3/ul Nucleated Red Blood Cells # 0.0 10^3/ul Sodium Level 139 mmol/L Potassium Level 4.2 mmol/L Chloride Level 107 mmol/L Carbon Dioxide Level 27 mmol/L Anion Gap 5 Blood Urea Nitrogen 24 mg/dl Creatinine 0.65 mg/dl Est Glomerular Filtrat Rate mL/min > 60 mL/min Glucose Level 91 mg/dl Calcium Level 9.8 mg/dl Magnesium Level 2.1 mg/dl Assessment and Plan Assessment/Diagnosis Diagnosis Major depressive disorder moderate recurrent without psychosis Recommendation/Plan Medication Management Declines any medication Multiple antipsychotics: No (Does not meet criteria for 5150 hold) Discharge Disposition: Other Legal Status: Voluntary (Does not meets criteria for 5150 hold) BETO VASQUEZ NP Jan 05, 2019 18:31
[2019-01-05 19:50] VITALS: BP 128/73; PULSE 80; RESP 20
[2019-01-06 01:38] VITALS: BP 114/58; PULSE 68; RESP 20
[2019-01-06] MEDS: HYDROCODONE/APAP (5/325) TAB PO PRN (06:42)
[2019-01-06 08:00] VITALS: BP 143/62; PULSE 70; RESP 18
[2019-01-06] MEDS: ENOXAPARIN 40 MG/0.4 ML SYG SC SCH (08:13)
--- NOTE | 2019-01-06 11:16 | DS ---
Date/Time of Note Date/Time of Note DATE: 01/06/19 TIME: 11:15 Discharge Summary Admission/Discharge Info Admit Date/Time Dec 30, 2018 at 17:40 Discharge Date/Time Discharge Diagnosis 1. Multilevel cervical spinal stenosis. 2. Homelessness Patient Condition: Stable Consults Dr. Rodriguez, neurosurgery Procedures Procedures 01/03/2019. CTA neck. IMPRESSION: 1. Greater than 70% percent stenosis distal cervical left vertebral artery at the C1-2 level due to chronic bony perforation as described above. 2. Patent left and right vertebral arteries, codominant. 3. Aortic arch and great vessel origins not included on the study. 01/03/2019. MRI thoracic spine without contrast. IMPRESSION: 1. Old superior T10 endplate fracture without loss of vertebral body height. 2. Small possible foci of core demyelination on the right at T6 and T9 and in the posterior lateral left superior T9. 3. No canal stenosis or cord encroachment. 4. Mild multilevel mid and upper thoracic spondylosis.. 01/03/2019. MRI of the cervical spine with and without contrast IMPRESSION: Multiple sequences are degraded by motion. 1. Prominent degenerative changes at the craniocervical junction, with mild basilar invagination, severe left C1-C2 lateral mass articulation degenerative change with osseous hypertrophy and prominent height loss of the lateral masses and prominence of the venous plexus in this region. More focal 5 mm enhancing nodule with mild mass effect on the left thecal sac at this level is likely an engorged venous plexus. CT may be obtained for better evaluation of the osseous structures of the craniocervical junction. 2. Mild intermediate signal in the left afshan cord at this level, not well evaluated due to motion, may represent focal myelomalacia and without post contrast enhancement. 3. Reversal of cervical lordosis at C4, and left convex curvature of the cervical spine with significant multilevel degenerative disc and facet disease, with grade 1 anterolisthesis at C3-C4 and retrolisthesis at C4-C6 as above. 4. Multilevel disc osteophyte complexes resulting in multilevel spinal canal stenosis as detailed above level by level, severe at C4-C5 and C5-C6. 5. Multilevel facet arthropathy and uncovertebral joint spurring resulting in significant multilevel neural foraminal narrowing as detailed above level by level. 6. Prominent degenerative right C5-C6 facet and linh facet edema. 7. Faint loss of flow void in the left vertebral artery on postcontrast images, which can be further assessed with dedicated CTA or MRA. RPTAT: PP Atif Carey Physician Date Time Electronically viewed and signed by Atif Carey Physician on 01/03/2019 08:08 01/02/2019. MRI of the lumbar spine with and without contrast IMPRESSION: 1. Levoscoliosis of the lumbar spine with multilevel degenerative disc and facet disease, with grade 1 anterolisthesis at L4-S1 and mild retrolisthesis at L2-L3. 2. Severe facet arthropathy at L5-S1 with right facet joint effusion and degenerative linh facet edema/inflammation, as well as broad-based disc bulge and left central disc extrusion as detailed above, with prominent narrowing of the subarticular recesses and likely contact of the traversing S1 nerve roots. Moderate to severe bilateral neural foraminal narrowing and mild spinal canal stenosis. 3. Severe facet arthropathy, right facet joint effusion and linh facet edema/inflammation at L4-L5 as well as broad-based disc bulge with moderate to severe right and moderate left neural foraminal narrowing, moderate to severe spinal canal stenosis and severe subarticular recess narrowing. Interspinous edema / cystic change and bursitis at this level. 4. Moderate spinal canal stenosis, moderate right and moderate to severe left neural foraminal narrowing at L3-L4. 5. Additional levels as above. Hospital Course 63-year-old homeless female with a history of chronic back pain/progressive weakness, here with worsening weakness with inability to walk who is also wheelchair-bound for a long time, found to have severe multilevel cervical spinal stenosis. Pain was managed with adequate analgesia. Patient had neurosurgery evaluation and surgical approach was proposed initially,however patient kept changing her mind frequently leading to cancellation of procedure. As per NS, this is an elective surgery and in the fact that patient seems having liable mood with no certainty of whether she is agreeable for surgery, having no family support, chronicity of her symptoms, she would need a reevaluation after short course of PT. Patient in agreement with this plan. During the course of hospitalization, she repeatedly denies that none of them providers had seen her and the neurosur daniela was here for only a minute. She also denied that she has not been evaluated by a social service worker. She is also homeless and unfortunately none of the nursing homes accept her secondary to her homelessness, also patient is already wheelchair-bound prior to admission with no further decline in function. Physical therapy evaluated patient multiple times during her stay at [facility], and no further inpatient rehabilitation or alf facility recommended and disposition was deferred to social service worker. forming process line worker recommended halfway placement as patient is homeless. I also recommended patient to follow-up with her primary care physician and would benefit from outpatient physical therapy. Patient also had psych evaluation with her psychiatric nurse practitioner who determined patient has capacity to make complex medical decision. She was also diagnosed with major depressive disorders for which she declined to be on medications. At this time, patient deemed mentally healthy to make decision, she is safe to be discharged with the above mentioned plan with follow-up with Dr. Rodriguez in his clinic. Transition for follow-up appointment with Dr. Rodriguez was arranged with our trimming caser. Approximately 60 m spent on coordinating the discharge on this patient. Patient was seen in collaboration with [facility] Active Script[facility] Tramadol Hcl* (Ultram*) 50 Mg Tablet, 50 MG PO Q8 for SEVER PAIN, #20 TAB Prov:PARBHJOT NAVA NP 01/05/19 Ibuprofen* (Ibuprofen*) 800 Mg Tablet, 800 MG PO Q6H PRN for PAIN, #30 TAB Prov:PRABHJOT NAVA NP 01/05/19 Follow-up Plan Follow-up with Dr. Rodriguez in his clinic in 2 weeks. [id number] [facility] [address] [place] [address] Office Follow-up with primary care physician in 1 week Primary Care Provider Not On Staff Doctor PRABHJOT NAVA NP Jan 06, 2019 11:16
--- NOTE | 2019-01-06 11:18 | QN ---
Documentation Comment Discharge was canceled on 01/05/2019 secondary to pending psych evaluation, finding appropriate disposition. Today patient states that she has never seen a social welfare research worker here or anyone has told her that she is going .... She also reports that she has been contacting another neurosurgeon who operated on her mother and she will see him after discharge. Our social welfare research worker has been in contact with the patient since admission and patient was just been seen ye sterday with adequate explanation of discharge plan. However, patient repeatedly denies that fact that she saw a social welfare research worker. She is also asking to take a shower. Patient was seen by our psychiatric nurse practitioner and determined capacity to make complex decision. Case d/w . PRABHJOT NAVA NP Jan 06, 2019 11:18
== END 2019-01-06 14:00 | disposition home health service (06) | DRG 552 ==
LOC: UNDOADMIN 14:39 → 5EC 14:39
PROVIDERS: ADMIT Internal Medicine; ATTEND Internal Medicine
DX: M48.02 Spinal stenosis, cervical region (principal); M50.01 Cervical disc disorder with myelopathy, high cervical region; F33.1 Major depressive disorder, recurrent, moderate; M50.11 Cervical disc disorder with radiculopathy, high cervical region; M21.371 Foot drop, right foot; G89.4 Chronic pain syndrome; M43.16 Spondylolisthesis, lumbar region; M48.061 Spinal stenosis, lumbar region without neurogenic claudication; F17.210 Nicotine dependence, cigarettes, uncomplicated; R32 Unspecified urinary incontinence; R53.81 Other malaise; Z59.0 Homelessness
CPT/HCPCS: 70450; 70498; 72146; 72156; 72158; 80048; 80053; 82607; 83036; 83735; 84100; 85025; 85610; 85730; 86592; 86803; 86850; 86900; 86901; 87340; 97162; 97167; 97530; J0696; J1650; Q9967